=== PATIENT | male | born 2005 | race Caucasian/White ===

== ENCOUNTER 2025-05-26 16:35 | Outpatient (CLI) | payer OTHER, SELFPAY | END 2025-05-26 16:36 | disposition home or self-care (01) | LOC: AMB 05-27 13:59 | PROVIDERS: Visit Provider Family Medicine | DX: R41.82 Altered mental status, unspecified (principal); H53.8 Other visual disturbances; R20.2 Paresthesia of skin | CPT/HCPCS: A0425; A0427 ==

== ENCOUNTER 2025-06-17 00:45 | Outpatient (CLI) | payer OTHER, SELFPAY | END 2025-06-17 00:46 | disposition home or self-care (01) | LOC: AMB 06-19 10:04 | PROVIDERS: Visit Provider Family Medicine | DX: R06.09 Other forms of dyspnea (principal) | CPT/HCPCS: A0998 ==

== ENCOUNTER 2025-06-25 21:25 | Emergency (ER) | payer OTHER, SELFPAY ==
--- OUTSIDE RECORDS SUMMARY | 2025-05-26 17:14 | XMS_ITS | Encounter Summary ---
Author Organization [facility] Address [address] [place] [address] Care Team Providers Care Zigzag Appliquer Name Role Phone Elsewhere, Pcp Primary Care Provider Unavailabl e Reason for Visit * Reason Comments Dizziness Brought in by billnicola panchal after he felt dizzy and had decreased sensation in his extremities while driving home from work after jarring his neck while lifting a carpet at work today. Encounter Details Date Type Department Care Team (Late st Contact Info) Description 05/26/2025 5:14 PM CDT - 05/26/2025 6:29 PM CDT Emergency [facility] [address] [place] [phone] Joon Deng, DAHLIA, C.N.P., D.N.P. [address] [place] [address] Strain Neck Initial (Primary Dx); Presyncope; Paresthesia Discharge Disposition: Home or Self Care Social History Tobacco Use Types Packs/Day Years Used Date Smoking Tobacco: Never Smokeless Tobacco: Never Alcohol Use Standard Drinks/Week Comments Not Currently 0 (1 standard drink = 0.6 oz pur e alcohol) 1-2 times monthly Humiliation, Afraid, Rape, and Kick questionnair e Answer Date Recorded Within the last year, have y ou been afraid of your partner or ex-partner? No 08/14/2024 Within the last year, have y ou been humiliated or emotionally abused in other ways by your partner or ex-partner? No Within the last year, have y ou been kicked, hit, slapped, or otherwise physically hurt by your partner or ex-partner? No 08/14/2024 Within the last year, have y ou been raped or forced to have any kind of sexual activity by your partner or ex-partner? No 08/14/2024 Hunger Vital Sign Answer Date Recorded Within the past 12 months, y ou worried that your food would run out before you got the money to buy more. Sometimes true Within the past 12 months, t he food you bought just didn't last and you didn't have money to get more. Sometimes true PRAPARE - Transportation Answer Date Re corded In the past 12 months, has l ack of transportation kept you from medical appointments or from getting medications? Yes 05/09 In the past 12 months, has l ack of transportation kept you from meetings, work, or from getting things needed for daily living? Yes 05/27/2025 [facility] Utilities Answer Date Recorded In the past 12 months has [employer], gas, oil, or water [employer] threatened to shut off services in your home? No 05/27/2025 Depression Answer Date Recor ded PHQ-9 Total Score (max 27) 27 05/27 Housing Stability Answer Date Recorded What is your living situation today? [facility] 05/27/2025 Sex and Gender Information Value Date Recorded Sex Assigned at Male 04/14/2024 10:17 AM CDT Legal Sex Male 11:10 AM CDT Gender Identity Male 04/14/2024 10:17 AM CDT Sexual Orientation Straight 04/14/2024 10 :17 AM CDT documented as of this encounter Last Filed Vital Signs Vital Sign Reading Time Taken Comments Blood Pressure 115/69 05/26/2025 6:15 PM CDT Pulse 72 05/26/2025 6:15 PM CDT Temperature 36.9 C (98.4 F) 05/26/2025 5:06 PM CDT Respiratory Rate 18 05/26/2025 6:15 PM CDT Oxygen Saturation 97% 05/26/2025 6:15 PM CDT Inhaled Oxygen Concentration - - Weight 66 kg (145 lb 8.1 oz) 05/26/2025 5:38 PM CDT Height - - Body Mass Index 18.95 08/21/2024 10:00 AM ORACLE SPECIALIST documented in this encounter Discharge Instructions * Discharge Instructions* Joon Deng APRN, C.N.P., D.N.P. - 05/26/2025 5:57 PM CDT Take a wait and see approach, with your neck pain take ibuprofen 3 tablets every 6 hours with some food. If this pain continues or you develop any other symptoms return to family medicine for repeat examination and/or return to the emergency department. Etiology of you were symptoms are not quite clear on today's visit, however if this continues you will need follow-up. Thank you for utilizing [facility] for your care! * Attachments The following attachments cannot be sent through Care Everywhere. * Cervical Sprain [id number] (Dutch) documented in this encounter Medications at Time of Discharge escitalopram (Lexapro) 10 mg tablet Take 1 tablet daily. 90 tablet 3 06/20/2024 3:07 PM CDT 06/11/2024 05/28/2025 traZODone (DesyreL) 50 mg tablet Take 0.5-1 tablet (25-50 mg total) by mouth at night for insomnia. 30 tablet 1 08/21/2024 05/28/2025 documented as of this encounter ED Notes * Joon Deng APRN, C.N.P., D.N.P. - 05/26/2025 5:17 PM CDT Images from the original note were not included. CHIEF COMPLAINT/REASON FOR VISIT Dizziness (Brought in by ambulance after he felt dizzy and had decreased sensation in his extremities while driving home from work after jarring his neck while lifting a carpet at work today.) HISTORY OF PRESENT ILLNESS Patient presents to the emergency department with complaints of neck pain and thoracic back pain. Patient states he was working today, they were lifting a heavy carpet when his partner dropped his end of the carpet, the patient felt a jar in his neck but no other symptoms. After the patient got home, he had an episode where he felt like he was on drugs/hallucinogens and felt some confusion as well as numb fingers and numb toes, he then noticed he was having some cervical neck pain as well as some thoracic back pain. Patient states he routinely we will get thoracic back pain and he is not sureif this is part of the chronic problem or if this is a new problem. Patient's symptoms have since resolved and he has no numbness or tingling currently. History provided by: Patient, EMS personnel and medical records cow tester needed/used: no REVIEW OF SYSTEMS Constitutional: Negative for chills, diaphoresis, fatigue and fever. HENT: Negative for sinus pressure and sore throat. Respiratory: Negative for cough, chest tightness and shortness of breath. Cardiovascular: Negative for chest pain. Gastrointestinal: Negative for abdominal pain, constipation, diarrhea, nausea and vomiting. Genitourinary: Negative for dysuria, frequency and urgency. Musculoskeletal: Positive for back pain, neck pain and neck stiffness. Negative for arthralgias andmyalgias. Skin: Negative for rash. Neurological: Positive for syncope (Presyncopal). Negative for dizziness, weakness and headaches. Hematological: Negative for adenopathy. Does not bruise/bleed easily. All other systems reviewed and are negative. Allergies Reviewed in medical record Current Medications Reviewed in Medical Record. PAST HISTORY Medical Medical History[1] Problem List[2] Surgical Surgical History[3] Family Reviewed in Medical Record Social History Social History Tobacco Use Smoking status: Never Smokeless tobacco: Never Substance Use Topics Alcohol use: Not Currently Comment: 1-2 times monthly Social History Substance and Sexual Activity Drug Use Never OBJECTIVE Initial Vital Signs / Weights Initial Vitals [05/26/25 1706] Temperature 36.9 ??C Pulse Rate 79 Heart Rate 79 Resp Rate 16 Blood Pressure 128/78 SpO2 98 % Pain Score 0 - No pain Wt Readings from Last 3 Encounters: 05/26/25 66 kg 08/21/24 67.4 kg 08/14/24 70.2 kg PHYSICAL EXAMINATION Constitutional: Nursing note and vitals reviewed. No distress. HENT: Mouth/Throat: Oropharynx is clear and moist. Mucous membranes are moist. No tonsillar exudate. Eyes: Conjunctivae and EOM are normal. Pupils are equal, round, and reactive to light. Neck: Neck supple. Cardiovascular: Normal rate, regular rhythm, S1 normal, S2 normal and normal heart sounds. Pulses are strong and palpable. No murmur heard.Capillary refill: takes less than 3 seconds Pulmonary/Chest: Effort normal and breath sounds normal. There is normal air entry. No respiratory distress. Abdominal: Soft. Bowel sounds are normal. exhibits no distension. There is no abdominal tenderness.There is no rebound and no guarding. Musculoskeletal: General: Normal range of motion. Cervical back: Normal range of motion and neck supple. Lymphadenopathy: He has no cervical adenopathy. Neurological: Alert and oriented to person, place, and time. No cranial nerve deficit. NEUROLOGICAL: Mental status: Alert and oriented to person, place, and time. Follows simple and complex commands appropriately. Good fund of knowledge. Language normal including naming, comprehension, repetition, and fluency. CN: 2 - Pupils equal, round, and reactive to light and accommodation. Visual hathaway intact. 3,4,6 - Extraocular muscles intact without nystagmus. 5 - Sensations preserved. 7 - Symmetry preserved. 8 - Conversational hearing intact. 9,10 - Palate elevation symmetric. 11 - Sternocleidomastoid and trapezius 5/5 strength. 12 - Tongue midline. No dysarthria. Motor: Normal tone and bulk. 5/5 strength in left LUE, 5/5 strength in LLE, 5/5 strength in RUE, 5/5 strength in RLE. Drift - NO pronator drift LUE, LLE, RUE, or RLE Sensory: Intact to light touch. Coordination: Zynwby-cv-mddl and odrv-xj-ocgo intact bilaterally without dysmetria and not disproportionate to weakness. Skin: Skin is warm, dry and intact. Psychiatric: He has a normal mood and affect. DIAGNOSTICS Labs Labs Reviewed CBC WITH DIFFERENTIAL, B - Abnormal Result Value Hemoglobin 14.6 Hematocrit 41.4 Erythrocytes 4.92 MCV 84.1 RBC Distrib Width 12.0 Platelet Count 150 Leukocytes 6.0 Neutrophils 4.70 Lymphocytes 0.94 (*) Monocytes 0.30 Eosinophils <0.04 Basophils <0.04 COMPREHENSIVE METABOLIC PANEL, S/P Potassium, P 3.9 Sodium, P 141 Chloride, P 105 Bicarbonate, P 23 Anion Gap, P 13 BUN (Blood Urea Nitrogen), P 10 Creatinine 0.79 Estimated GFR (eGFR) >90 Calcium, Total, P 9.3 Glucose, P 103 Protein, Total, P 7.3 Albumin, P 4.9 Aspartate Aminotransferase (AST), P 20 Alkaline Phosphatase, P 40 Alanine Aminotransferase (ALT), P 17 Bilirubin, Total, P 1.0 GLUCOSE POCT, B Glucose, POCT, B 98 ECG ECG 12 Lead Result Date: 05/26/2025 Normal sinus rhythm with sinus arrhythmia Right axis deviation Incomplete right bundle branch block When compared with ECG of 14-Aug-2024 08:38, QRS duration has increased Reviewed by KAYA Perez Radiology CT Thoracic Spine without IV Contrast Final Result No acute fracture or listhesis seen in the thoracic or cervical spine. Mild gradual reversal of the normal cervical lordosis, which can be due to patient positioning, muscle spasm, or soft tissue injury. Thoracic spine Schmorl's nodes as described. CT Cervical Spine without IV Contrast Final Result No acute fracture or listhesis seen in the thoracic or cervical spine. Mild gradual reversal of the normal cervical lordosis, which can be due to patient positioning, muscle spasm, or soft tissue injury. Thoracic spine Schmorl's nodes as described. Procedures None See separate procedure note. ED COURSE ED Course as of 05/26/25 1833 e May 26, 2025 1708 Based on pre arrival information a red trauma was called. Once the patient arrived in the emergency department there was no trauma that produced his symptoms. 1710 I performed my initial evaluation of the patient. We discussed Emergency Department course including testing, treatment, and potential disposition based on findings. Arrives in C collar. Having no symptoms whatsoever at this time. Cranial nerves 2-12 intact, no drift, no focal neurological findings on exam. The trauma was down graded as there was no traumatic incident that produced his symptoms. 1736 Formal EKG read IMPRESSION: Normal sinus rhythm with sinus arrhythmia Right axis deviation Incomplete right bundle branch block When compared with ECG of 14-Aug-2024 08:38, QRS duration has increased Reviewed by KAYA Perez 1749 CMP is entirely unremarkable. 1750 IMPRESSION: CT cervical and thoracic spine. No acute fracture or listhesis seen in the thoracic or cervical spine. Mild gradual reversal of the normal cervical lordosis, which can be due to patient positioning, muscle spasm, or soft tissue injury. Thoracic spine Schmorl's nodes as described. 1752 Cervical collar was removed, patient flexed and he felt some tightness in the back of his neck, he was extended and rotated [id number] with no symptoms or radicular symptoms associated with numbness tingling. 1753 We will get orthostatics after the cervical collar was removed. 1811 Patient's orthostatics were negative. Patient remained symptom free. Will take a wait and see approach with him. He was advised to return to the emergency department for any worsening symptoms. Red flags were given. I discussed the plan for discharge with the patient, and patient/family is agreeable. I discussed with patient the utility, limitations, and findings of the exam/interventions/studies done during this visit as well as the list of differential diagnosis. Patient understands provisional nature of this diagnosis and need for follow up. We discussed the plan of care, including supportive cares. We also discussed symptoms to monitor and symptoms that should prompt them to return for re-evaluation including new or worsening symptoms. All questions and concerns addressed. Patient to be discharged byRN. Final Diagnoses: as of 05/26/25 1833 Strain Neck Initial Presyncope Paresthesia INTERVENTIONS Medications - No data to display MEDICAL DECISION MAKING Assessment and Plan Patient presents to the emergency department with some atypical symptoms neck pain, thoracic back pain, presyncopal symptoms with some mild confusion and head ramirez. The patient developed some numbness and tingling of his hands and feet. Patient did feel a twinge of neck pain when a carpet was dropped earlier today. On the drive home is when all these symptoms started. He presents by ambulance. Differential diagnosis includes but not limited to neck strain, sprain, fracture, ligamentous injury, metabolic derangement, hypoglycemia, or others. We will get a point of care glucose, CBC, CMP. We will get a CT scan of the cervical spine as well as thoracic spine. Peripheral IV will be placed in case patient developed symptoms. Patient arrived in his cervical collar. This is left in place until imaging is completed. Disposition pending workup. Workup in the emergency department was pretty unrevealing. CT scans of the cervical and thoracic spine were essentially unremarkable. He did have mild straightening of his cervical spine, however he had a cervical collar on at the time of imaging. Labs CBC, BNP were unremarkable. Orthostatics were negative. EKG was unremarkable and had no chest pain. I think with this patient we can take a wait and see approach to see how his symptoms present over the next couple of days. I instructed him to follow-up with primary care in a week, sooner if you were to get worse or return to the emergency department. Again neurologically there is no focal findings and this is reassuring.. DIFFERENTIAL DIAGNOSES As above. PROBLEMS ADDRESSED THIS VISIT As above. Care is significantly affected by the following Social Determinants of Health: none. I reviewed the following external records: primary care records, prior outpatient labs, prior outpatient radiology tests and inpatient records. Assessment & Plan The following tests were considered but ultimately not performed: none. Escalation of care, including admission/observation, considered: none. DIAGNOSIS Final diagnoses: [S16.1XXA] Strain Neck Initial [R55] Presyncope [R20.2] Paresthesia DISPOSITION Home or Self Care DISCHARGE/TRANSFER VITAL SIGNS Vitals: 05/26/25 1815 BP: 115/69 Pulse: 72 Resp: 18 Temp: SpO2: 97% ED DISCHARGE MEDS ED Prescriptions None FOLLOW UP Contact Information for Follow-ups Elsewhere, Pcp Specialty: Internal Medicine, Associate Professor Of Theatre, Pediatrics, Women's Health, Family Medicine Relationship: PCP - General Office Next Steps: Follow up in 1 week(s) Instructions: As needed Joon Deng, MARIVEL, LOCKER ATTENDANT, LOADMASTER-C, AGACNP-BC, ENP-C Emergency Medicine [1] Past Medical History: Diagnosis Date Depressive Disorder Disturbance Sleep Hallucination Self Mutilation [2] Patient Active Problem List Diagnosis Myocardial Infarction Type 2 (HCC) Lyme Disease Myocarditis (HCC) Myocarditis Acute (HCC) Spells Neurological (HCC) Lyme Disease Personal History [3] History reviewed. No pertinent surgical history. Joon Deng APRN, C.N.P., D.N.P. 05/26/25 1835 documented in this encounter Plan of Treatment Upcoming Encounters Date Type Department Care Team (Late st Contact Info) Description 07/14/2025 1:00 PM CDT Office Visit Department of Neurology in [place], [place] [address] [place] [address] Jadon Blevins M.D. [address] [place] [address] documented as of this encounter Procedures Procedure Name Priority Date/Time Associated Diagnosis Comments CT THORACIC SPINE WITHOUT IV CONTRAST RAD - Semiurgent (Fast; most ED patients; some inpatients) 05/26/2025 5:[address] CERVICAL SPINE WITHOUT IV CONTRAST RAD - Semiurgent (Fast; most ED patients; some inpatients) 05/26/2025 5:36 PM CDT ECG Routine 05/26/2025 5:19 PM CDT CBC WITH DIFFERENTIAL, B STAT 05/26/2025 5:19 PM CDT COMPREHENSIVE METABOLIC PANEL, S/P STAT 05/26/2025 5:19 PM CDT GLUCOSE POCT, B Routine 05/26/2025 5:17 PM CDT documented in this encounter Results * CT Thoracic Spine without IV Contrast (05/26/2025 5:39 PM CDT) Anatomical Region Laterality Modality Thoracic Spine, Neuroradiolo gy RST LOS, Neuroradiology ARZ LOS, Neuroradiology FLA LOS N/A Computed Tomography Impressions 05/26/2025 5:46 PM CDT No acute fracture or listhesis seen in the thoracic or cervical spine. Mild gradual reversal of the normal cervical lordosis, which can be due to patient positioning, muscle spasm, or soft tissue injury. Thoracic spine Schmorl's nodes as described. Narrative 05/26/2025 5:46 PM CDT EXAM: CT CERVICAL SPINE WITHOUT IV CONTRAST, CT THORACIC SPINE WITHOUT IV CONTRAST COMPARISON: 06/01/2024 FINDINGS: No acute fracture or listhesis seen in the thoracic or cervical spine by CT. There is mild gradual reversal of the normal cervical lordosis. There are multiple mid to lower thoracic vertebral body Schmorl's nodes. Procedure Note Joni Cunningham M.D. - 05/26/2025 EXAM: CT CERVICAL SPINE WITHOUT IV CONTRAST, CT THORACIC SPINE WITHOUT IVCONTRAST COMPARISON: 06/01/2024 FINDINGS: No acute fracture or listhesis seen in the thoracic or cervical spine byCT. There is mild gradual reversal of the normal cervical lordosis. There are multiple mid to lower thoracic vertebral body Schmorl's nodes. IMPRESSION: No acute fracture or listhesis seen in the thoracic or cervical spine. Mild gradual reversal of the normal cervical lordosis, which can be due topatient positioning, muscle spasm, or soft tissue injury. Thoracic spine Schmorl's nodes as described. us Joon Deng APRN, C.N.P., D.N.P. IMG CT PROCE DURES Final Result * CT Cervical Spine without IV Contrast (05/26/2025 5:36 PM CDT) Anatomical Region Laterality Modality Cervical Spine, Neuroradiolo gy RST LOS, Neuroradiology ARZ LOS, Neuroradiology FLA LOS N/A Computed Tomography 05/26/2025 5:29 PM CDT Impressions 05/26/2025 5:46 PM CDT No acute fracture or listhesis seen in the thoracic or cervical spine. Mild gradual reversal of the normal cervical lordosis, which can be due to patient positioning, muscle spasm, or soft tissue injury. Thoracic spine Schmorl's nodes as described. Narrative 05/26/2025 5:46 PM CDT EXAM: CT CERVICAL SPINE WITHOUT IV CONTRAST, CT THORACIC SPINE WITHOUT IV CONTRAST COMPARISON: 06/01/2024 FINDINGS: No acute fracture or listhesis seen in the thoracic or cervical spine by CT. There is mild gradual reversal of the normal cervical lordosis. There are multiple mid to lower thoracic vertebral body Schmorl's nodes. Procedure Note Joni Cunningham M.D. - 05/26/2025 EXAM: CT CERVICAL SPINE WITHOUT IV CONTRAST, CT THORACIC SPINE WITHOUT IVCONTRAST COMPARISON: 06/01/2024 FINDINGS: No acute fracture or listhesis seen in the thoracic or cervical spine byCT. There is mild gradual reversal of the normal cervical lordosis. There are multiple mid to lower thoracic vertebral body Schmorl's nodes. IMPRESSION: No acute fracture or listhesis seen in the thoracic or cervical spine. Mild gradual reversal of the normal cervical lordosis, which can be due topatient positioning, muscle spasm, or soft tissue injury. Thoracic spine Schmorl's nodes as described. us Joon Deng APRN, C.N.P., D.N.P. IMG CT PROCE DURES Final Result * ECG 12 Lead (05/26/2025 5:19 PM CDT) Ventricular Rate ECG/Min 77 BPM MUSE RI Interval 164 ms MUSE QRSD Interval 90 ms MUSE QT Interval 368 ms MUSE QTC Interval 416 ms MUSE P [place] 81 degrees MUSE R [place] 92 degrees MUSE T Wave [place] 75 degrees MUSE 05/26/2025 5:19 PM CDT 05/27/2025 7:52 AM CDT Impressions MUSE - 05/26/2025 5:23 PM CDT Normal sinus rhythm with sinus arrhythmia Right axis deviation Incomplete right bundle branch block Nonspecific T wave abnormality When compared with ECG of 14-Aug-2024 08:38, QRS duration has increased Reviewed by KAYA Perez Narrative Procedure Note Xiang Jenkins M.D. - 05/27/2025 IMPRESSION: Normal sinus rhythm with sinus arrhythmia Right axis deviation Incomplete right bundle branch block Nonspecific T wave abnormality When compared with ECG of 14-Aug-2024 08:38, QRS duration has increased Reviewed by KAYA Perez Joon Deng APRN, C.N.P., D.N.P. ECG ORDERABL ES Edited Result - Final MUSE NA * Comprehensive Metabolic Panel (05/26/2025 5:19 PM CDT) Pathologist [facility] Potassium, P 3.9 3.6 - 5.2 mmol/L 05/26/2025 5:44 PM CDT CNFL Sodium, P 141 135 - 145 mmol/L 05/26/2025 5:44 PM CDT CNFL Chloride, P 105 98 - 107 mmol/L 05/26/2025 5:44 PM CDT CNFL Bicarbonate, P 23 22 - 29 mmol/L 05/26/2025 5:43 PM CDT CNFL Anion Gap, P 13 7 - 15 05/26/2025 5:44 PM CDT CNFL BUN (Blood Urea Nitrogen), P 10 8 - 24 mg/dL 05/26/2025 5:43 PM CDT CNFL Creatinine 0.79 0.74 - 1.35 mg/dL 05/26/2025 5:43 PM CDT CNFL Estimated GFR (eGFR) >90 >=60 mL/min/BS A 05/26/2025 5:43 PM CDT CNFL Comment: Estimated GFR calculated using the 2020 CKD_EPI creatinine equation. Calcium, Total, P 9.3 8.6 - 10.0 mg/dL 05/26/2025 5:43 PM CDT CNFL Glucose, P 103 70 - 140 mg/dL 05/26/2025 5:43 PM CDT CNFL Protein, Total, P 7.3 6.3 - 7.9 g/dL 05/26/2025 5:43 PM CDT CNFL Albumin, P 4.9 3.5 - 5.0 g/dL 05/26/2025 5:43 PM CDT CNFL Aspartate Aminotransferase (AST), P 20 8 - 48 U/L 05/26/2025 5:43 PM CDT CNFL Alkaline Phosphatase, P 40 40 - 129 U/L 05/26/2025 5:43 PM CDT CNFL Alanine Aminotransferase (ALT), P 17 7 - 55 U/L 05/26/2025 5:43 PM CDT CNFL Bilirubin, Total, P 1.0 0.0 - 1.2 mg/dL 05/26/2025 5:43 PM CDT CNFL Blood (Blood, Venous) 05/26/2025 5:19 PM CDT 05/26/2025 5:20 PM CDT us Lisa Knight APRNNKemal., Gayle.N.P. LAB BLOOD AD D-ON Final Result [facility] [address] [place] [id number], [facility] CNFL [facility] [place] [address] * (ABNORMAL) CBC with Differential, Blood (05/26/2025 5:19 PM CDT) Hemoglobin 14.6 13.2 - 16.6 g/dL 05/26/2025 5:23 PM CDT CNFL Hematocrit 41.4 38.3 - 48.6 % 05/26/2025 5:23 PM CDT CNFL Erythrocytes 4.92 4.35 - 5.65 x10(12)/L 05/26/2025 5:23 PM CDT CNFL MCV 84.1 78.2 - 97.9 fL 05/26/2025 5:23 PM CDT CNFL RBC Distrib Width 12.0 11.8 - 14.5 % 05/26/2025 5:23 PM CDT CNFL Platelet Count 150 135 - 317 x10(9)/L 05/26/2025 5:23 PM CDT CNFL Leukocytes 6.0 3.4 - 9.6 x10(9)/L 05/26/2025 5:23 PM CDT CNFL Neutrophils 4.70 1.56 - 6.45 x10(9)/L 05/26/2025 5:23 PM CDT CNFL Lymphocytes 0.94(L) 0.95 - 3.07 x10(9)/L 05/26/2025 5:23 PM CDT CNFL Monocytes 0.30 0.26 - 0.81 x10(9)/L 05/26/2025 5:23 PM CDT CNFL Eosinophils <0.04 0.03 - 0.48 x10(9)/L 05/26/2025 5:23 PM CDT CNFL Basophils <0.04 0.01 - 0.08 x10(9)/L 05/26/2025 5:23 PM CDT CNFL Blood (Blood, Venous) 05/26/2025 5:19 PM CDT 05/26/2025 5:20 PM CDT Joon Deng APRN, C.N.P., D.N.P. LAB BLOOD AD D-ON Final Result Performing Organization Address [facility] Co de Phone Number [facility] [address] [place] [phone], [facility] in [place] [phone] * Glucose, POCT (05/26/2025 5:17 PM CDT) [facility] Glucose, POCT, B 98 70 - 140 mg/dL 05/26/2025 5:17 PM CDT [facility] Blood 05/26/2025 5:17 PM CDT 05/26/2025 5:24 PM CDT us Generic [facility] POCT ORDERABLES-MANUAL Final Result Performing Organization Address [facility] de Phone Number [facility] [address] [place] [phone], [facility] in [address] [address] documented in this encounter Visit Diagnoses Diagnosis Strain Neck Initial- Primary Presyncope Paresthesia documented in this encounter Additional Health Concerns Assessment Noted Time PHQ-9 Depression Total Score: 024 9:56 AM ORACLE SPECIALIST documented as of this encounter Care Teams Zigzag Appliquer Relationship Specialty Start Date End Date Elsewhere, Pcp PCP - General Internal Medicine 05/26/25 05/26/25 documented as of this encounter
--- OUTSIDE RECORDS SUMMARY | 2025-05-26 17:14 | XMS_ITS | Encounter Summary ---
Author Organization [facility] Address [address] [place] [address] Care Team Providers Care Law Clerk Name Role Phone Elsewhere, Pcp Primary Care [...] CDT - 05/26/2025 6:29 PM CDT Emergency [facility] [address] [place] [phone] Joon Deng, DAHLIA, C.N.P., D.N.P. [address] [place] [address] Strain Neck Initial (Primary Dx); Presyncope; [...] things needed for daily living? Yes 05/27/2025 [facility] Utilities Answer Date Recorded In the past 12 months has [employer], gas, oil, or water [employer] threatened to shut off services in your home? No 05/27/2025 Depression Answer Date Recor ded PHQ-9 Total Score (max 27) 27 05/27 Housing Stability Answer Date Recorded What is your living situation today? I have a [employer] place to live 05/27/2025 Sex and Gender [...] Body Mass Index 18.95 08/21/2024 10:00 AM GAS PUMPING STATION SUPERVISOR documented in this encounter Discharge Instructions * [...] will need follow-up. Thank you for utilizing [facility] for your care! * Attachments The following attachments cannot be sent through Care Everywhere. * Cervical Sprain Ahrq-ek-Aqxt (Croatian) documented in this encounter Medications at Time [...] by: Patient, EMS personnel and medical records language interpreter needed/used: no REVIEW OF SYSTEMS Constitutional: Negative [...] RLE Sensory: Intact to light touch. Coordination: Nroees-qt-mmoh and jlfn-gu-hmpq intact bilaterally without dysmetria and not disproportionate [...] his neck, he was extended and rotated rzvt-zu-[id number] with no symptoms or radicular symptoms associated [...] for Follow-ups Elsewhere, Pcp Specialty: Internal Medicine, Health Care Facility Administrator, Pediatrics, Women's Health, Family Medicine Relationship: PCP - General Office Next Steps: Follow up in 1 week(s) Instructions: As needed Joon Deng, MARIVEL, PATTERN FINISHER, WIRE STRIPPER-C, AGACNP-BC, ENP-C Emergency Medicine [1] Past Medical [...] CDT Office Visit Department of Neurology in [place], [place] [address] [place] [address] Jadon Blevins M.D. [address] [place] [address] documented as of this encounter Procedures Procedure [...] CDT) Ventricular Rate ECG/Min 77 BPM MUSE IL Interval 164 ms MUSE QRSD Interval 90 ms MUSE QT Interval 368 ms MUSE QTC Interval 416 ms MUSE P [place] 81 degrees MUSE R [place] 92 degrees MUSE T Wave [place] 75 degrees MUSE 05/26/2025 5:19 PM CDT [...] Metabolic Panel (05/26/2025 5:19 PM CDT) Pathologist [facility] Potassium, P 3.9 3.6 - 5.2 mmol/L [...] Gayle.N.P. LAB BLOOD AD D-ON Final Result [facility] [address] [place] [phone], [facility] CNFL [facility] [place] [address] * (ABNORMAL) CBC with Differential, Blood (05/26/2025 [...] AD D-ON Final Result Performing Organization Address [facility] Co de Phone Number [facility] [address] [place] [phone], [facility] in [place] [phone] * Glucose, POCT (05/26/2025 5:17 PM CDT) [facility] Glucose, POCT, B 98 70 - 140 mg/dL 05/26/2025 5:17 PM CDT [facility] Blood 05/26/2025 5:17 PM CDT 05/26/2025 5:24 PM CDT us Generic [facility] POCT ORDERABLES-MANUAL Final Result Performing Organization Address [facility] de Phone Number [facility] [address] [place] [phone], [facility] in [address] [address] documented in this encounter Visit Diagnoses Diagnosis Strain Neck Initial- Primary Presyncope Paresthesia documented in this encounter Additional Health Concerns Assessment Noted Time PHQ-9 Depression Total Score: 024 9:56 AM GAS PUMPING STATION SUPERVISOR documented as of this encounter Care Teams Law Clerk Relationship Specialty Start Date End Date Elsewhere, Pcp PCP - General Internal Medicine 05/26/25 05/26/25 documented as of this encounter
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
--- OUTSIDE RECORDS SUMMARY | 2025-05-28 10:00 | XMS_ITS | Encounter Summary ---
Author Organization [facility] Address [address] [place] [address] Care Team Providers Care Cask Maker Name Role Phone Riri Wright APRN, C.N.P. Primary Care Provide r Reason for Referral * Behavioral Health (Routine) - Authorized Specialty Diagnoses / Procedures Referred By Louie song Referred To Contact Psychiatry / Psychiatry and Psychology Diagnoses Persistent Depressive Disorder Autistic Feature Personal History Depression Major Recurrent Severe (HCC) Riri Wright APRN, C.N.P. [address] [place] [address] Phone: tel: fax: [facility] Region Referral ID Status Reason Start Date Expiration Date Visits Requested Visits Authorized [id number] Authorized Specialty Services Required 05/28/2025 11/27/2026 1 1 * Outpatient (Routine) - Authorized Specialty Diagnoses / Procedures Referred By Louie song Referred To Contact Psychiatry and Psychology Diagnoses Persistent Depressive Disorder Autistic Feature Personal History Depression Major Recurrent Severe (HCC) Riri Wright APRN, C.N.P. [address] [place] [address] Phone: tel: fax: Drake Whitley APRN, C.N.P., D.N.P. [address] [place] [address] Phone: tel: fax: Referral ID Status Reason Start Date Expiration Date V isits Requested Visits Authorized [id number] Authorized 05/28/2025 11/27/2026 1 1 Reason for Visit * Reason Comments Depression Suicidal thoughts Encounter Details Date Type Department Care Team (Late st Contact Info) Description 05/28/2025 10:00 AM CDT Telemedicine Department of Family Medicine, [facility] [place], in [address] [phone] Izabella Wagoner M.D. [address] [place] [phone] Persistent Depressive Disorder (Primary Dx); Autistic Feature [...] things needed for daily living? Yes 05/27/2025 [facility] Utilities Answer Date Recorded In the past 12 months has th [employer] electric, gas, oil, or water company threatened to shut off services in your home? No 05/27/2025 Depression Answer Date Recor ded PHQ-9 Total Score (max 27) 27 05/27 Housing Stability Answer Date Recorded What is your living situation today? I have a [facility] place to live 05/27/2025 Sex and [...] audio/video technology by Izabella Wagoner M.D. in [facility] to the patient in home. Patient is informed that their insurance will be billed. Patient is unaccompanied. Mom is in the home. Patient is at home . 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 [address] [place] [address] Scheduled Referrals Name Type Priority Associated Diagnoses [...] documented as of this encounter Care Teams Cask Maker Relationship Specialty Start Date End Date Riri Wright APRN, C.N.P. [address] [place] [address] PCP - General Family Medicine 05/27/25 documented as of this encounter
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
--- OUTSIDE RECORDS SUMMARY | 2025-06-01 11:40 | XMS_ITS | Encounter Summary ---
Author Organization [facility] Address [address] [place] [address] Care Team Providers Care Side Trimmer Name Role Phone Riri Wright APRN, C.N.P. Primary Care Provide r Reason for Referral * Outpatient (Routine) - Authorized Specialty Diagnoses / Procedures Referred By Louie song Referred To Contact Family Medicine Arron Restrepo M.D., M.P.H. [address] [phone] Phone: tel: fax: [facility] Referral ID Status Reason Start Date Expiration Date V isits Requested Visits Authorized [id number] Authorized 06/01/2025 12/01/2026 1 1 * Behavioral Health (Routine) - Authorized Specialty Diagnoses / Procedures Referred By Louie song Referred To Contact Psychiatry / Psychiatry and Psychology Diagnoses Persistent Depressive Disorder Autistic Feature Personal History Visual Hallucinations Insomnia Suicide Ideation Arron Restrepo M.D., M.P.H. [address] [phone] Phone: tel: fax: [facility] Referral ID Status Reason Start Date Expiration Date Visits Requested Visits Authorized [id number] Authorized Specialty Services Required 06/01/2025 12/01/2026 1 1 * Sleep Medicine (Routine) - Closed Specialty Diagnoses / Procedures Referred By oLuie song Referred To Contact Diagnoses Snoring Procedures Home sleep apnea test (HSAT) Arron Restrepo M.D., M.P.H. [address] [place] [phone] Phone: tel: fax: [facility] Referral ID Status Reason Start Date Expiration Date Visits Re quested Visits Authorized [id number] Closed 06/01/2025 09/01/2026 1 1 Reason for [...] Expiration Date Visits Re quested Visits Authorized [id number] Closed 05/27/2025 08/27/2026 1 1 Encounter Details Date Type Department Care Team (Late st Contact Info) Description 06/01/2025 11:40 AM CDT Office Visit Department of Family Medicine, [facility], in [address] [phone] Arron Restrepo M.D., M.P.H. [address] [place] [address] [phone] Persistent Depressive Disorder (Primary Dx); Autistic Feature [...] things needed for daily living? Yes 05/27/2025 [facility] Utilities Answer Date Recorded In the past 12 months has e [employer], gas, oil, or water company threatened to [...] CDT Office Visit Department of Neurology in [place], [place] [address] [place] [phone] Jadon Blevins M.D. [address] [place] [address] Scheduled Referrals Name Type Priority Associated Diagnoses [...] documented as of this encounter Care Teams Side Trimmer Relationship Specialty Start Date End Date Riri Wright APRN, C.N.P. [address] [place] [phone] PCP - General Family Medicine 05/27/25 documented as of this encounter
--- OUTSIDE RECORDS SUMMARY | 2025-06-10 07:17 | XMS_ITS | Encounter Summary ---
Author Organization [facility] Address [address] [place] [address] Care Team Providers Care Hot Head Machine Operator Name Role Phone Riri Wright APRN C.N.PNiurka Primary Care Provide r Reason for Referral * Sleep Medicine (Routine) - Closed Specialty Diagnoses / Procedures Referred By Louie t Referred To Contact Diagnoses Snoring Procedures Home sleep apnea test (HSAT) Arron Restrepo M.D., M.P.H. [address] [place] [phone] Phone: tel: fax: [facility] Region Referral ID Status Reason Start Date Expiration Date Visits Re quested Visits Authorized [id number] Closed 06/01/2025 09/01/2026 1 1 Reason for Visit * Sleep Medicine (Routine) - Closed Specialty Diagnoses / Procedures Referred By Contvinny song Referred To Contact Diagnoses Snoring Procedures Home sleep apnea test (HSAT) Arron Retsrepo M.D., M.P.H. [address] [place] [phone] Phone: tel: fax: [facility] Region Referral ID Status Reason Start Date Expiration Date Visits Re quested Visits Authorized [id number] Closed 06/01/2025 09/01/2026 1 1 Encounter Details Date Type Department Care Team (Latest Contact Info) Description 06/10/2025 7:17 AM CDT - 06/10/2025 11:59 PM CDT Hospital Encounter Department of Pulmonary Medicine in [place], [place] [address] [place] [address] Arron Restrepo M.D., M.P.H. [address] [place] [phone] Snoring Discharge Disposition: Home or Self Care Social [...] things needed for daily living? Yes 05/27/2025 [facility] Utilities Answer Date Recorded In the past 12 months has th e electric, gas, oil, or water company threatened to shut off services in your home? No 05/27/2025 Depression Answer Date Recor ded PHQ-9 Total Score (max 27) 27 05/30 Housing Stability Answer Date Recorded What is your living situation today? I have a [facility] place to live 05/27/2025 Sex and Gender Information Value Date Recorded Sex Assigned at Male 04/14/2024 10:17 AM CDT Legal Sex Male 11:10 AM CDT Gender Identity Male 04/14/2024 10:17 AM CDT Sexual Orientation Straight 04/14/2024 10 :17 AM CDT documented as of this encounter Medications at Time of Discharge mirtazapine (Remeron) 7.5 mg tabletIndications :Persistent Depressive Disorder,Depressi on Major Recurrent Severe (HCC) Take 1 tablet (7.5 mg total) by mouth at bedtime. 90 tablet 05/28/2025 documented as of this encounter Plan of Treatment Upcoming Encounters Date Type Department Care Team (Late st Contact Info) Description 07/14/2025 1:00 PM CDT Office Visit Department of Neurology in [place], [place] [address] [place] [phone] Jadon Blevins M.D. [address] [place] [phone] documented as of this encounter Procedures Procedure Name Priority Date/Time Associated Diagnosis Comments HOME SLEEP APNEA TEST (HSAT) Routine 06/10/2025 10:48 AM CDT Snoring documented in this encounter Results * Home sleep apnea [...] sleep clinic consult. Clinical correlation is advised. us Arron Restrepo M.D., M.P.H. [facility] Final Result ONBASE NA documented in this encounter Visit Diagnoses Diagnosis Snoring documented in this encounter Additional Health Concerns Assessment Noted Time PHQ-9 Depression Total Score: 27 025 2:58 PM CDT documented as of this encounter Care Teams Hot Head Machine Operator Relationship Specialty Start Date End Date Riri Wright APRN, C.N.P. [address] [place] [phone] PCP - General Family Medicine 05/27/25 documented as of this encounter
--- OUTSIDE RECORDS SUMMARY | 2025-06-10 07:17 | XMS_ITS | Encounter Summary ---
Author Organization [facility] Address [address] [place] [address] Care Team Providers Care Warp Worker Name Role Phone Riri Wright APRN C.N.PNiurka Primary Care Provide r Reason for Referral * Sleep Medicine (Routine) - Closed Specialty Diagnoses / Procedures Referred By Louie t Referred To Contact Diagnoses Snoring Procedures Home sleep apnea test (HSAT) Arron Restrepo M.D., M.P.H. [address] [place] [phone] Phone: tel: fax: [facility] Region Referral ID Status Reason Start Date Expiration Date Visits Re quested Visits Authorized [id number] Closed 06/01/2025 09/01/2026 1 1 Reason for Visit * Sleep Medicine (Routine) - Closed Specialty Diagnoses / Procedures Referred By Contvinny song Referred To Contact Diagnoses Snoring Procedures Home sleep apnea test (HSAT) Arron Restrepo M.D., M.P.H. [address] [place] [phone] Phone: tel: fax: [facility] Region Referral ID Status Reason Start Date Expiration Date Visits Re quested Visits Authorized [id number] Closed 06/01/2025 09/01/2026 1 1 Encounter Details Date Type Department Care Team (Latest Contact Info) Description 06/10/2025 7:17 AM CDT - 06/10/2025 11:59 PM CDT Hospital Encounter Department of Pulmonary Medicine in [place], [place] [address] [place] [phone] Arron Restrepo M.D., M.P.H. [address] [place] [phone] Snoring Discharge Disposition: Home or Self Care [...] things needed for daily living? Yes 05/27/2025 [facility] Utilities Answer Date Recorded In the past 12 months has th e electric, gas, oil, or water company threatened to shut off services in your home? No 05/27/2025 Depression Answer Date Recor ded PHQ-9 Total Score (max 27) 27 05/30 Housing Stability Answer Date Recorded What is your living situation today? I have a [facility] place to live 05/27/2025 Sex and Gender [...] CDT Office Visit Department of Neurology in [place], [place] [address] [place] [address] Jadon Blevins M.D. [address] [place] [phone] documented as of this encounter Procedures Procedure [...] documented as of this encounter Care Teams Warp Worker Relationship Specialty Start Date End Date Riri Wright APRN, C.N.P. [address] [place] [phone] PCP - General Family Medicine 05/27/25 documented as of this encounter
--- OUTSIDE RECORDS SUMMARY | 2025-06-25 21:28 | XMS_ITS | Encounter Summary ---
Author Organization [facility] Address [address] [place] [address] Care Team Providers Care Electrical Electronics Engineer Name Role Phone Riri Wright APRN, C.N.P. Primary Care Provide r Reason for Visit * Reason Onset Date Comments Positive PHQ-9 05/28/2025 Encounter Details Date Type Department Care Team (Latest Contact Info) Description 05/28/2025 Clinical Communication Department of Family Medicine, [facility], in [address] [phone] Rrii Wright APRN, C.N.P. [address] [place] [phone] Positive PHQ-9 Social History Tobacco Use Types Packs/Day Years [...] things needed for daily living? Yes 05/27/2025 [facility] Utilities Answer Date Recorded In the past [address] [facility], gas, oil, or water [employer] threatened to shut off services in your home? No 05/27/2025 Depression Answer Date Recor ded PHQ-9 Total Score (max 27) 27 05/27 Housing Stability Answer Date Recorded What is your living situation today? I have a [facility] to live 05/27/2025 Sex and Gender Information Value Date Recorded Sex Assigned at Male 04/14/2024 10:17 AM CDT Legal Sex Male 11:10 AM CDT Gender Identity Male 04/14/2024 10:17 AM CDT Sexual Orientation Straight 04/14/2024 10 :17 AM CDT documented as of this encounter Miscellaneous Notes * Telephone Encounter - Aida Gaytan, RNiurkaN. - 05/28/2025 9:20 AM CDT SUBJECTIVE CHIEF COMPLAINT / REASON FOR CALL No chief complaint on file. Information Discussed Called patient d/t positive PHQ-9 score. Pt states he has thought of a couple ways he could commit suicide but nothing concrete. He was recently in ER for work related injury. Pt reports he stoppedusing Lexapro d/t not helping much and made him feel dull. He would also like to discuss a referral for sleep study and he feels his fatigue is not helping his mood. PLAN Disposition/Recommendation: Pt scheduled for On The Fly visit with Dr. Butts today. Pt was given crisis info for suicide assistance line. Portal message also sent. Information/Education: patient/caller able to teach back Caller agreeable to plan of care: yes The following references were used: nursing clinical judgement documented in this encounter Plan of Treatment Upcoming Encounters Date Type Department Care Team (Late st Contact Info) Description 07/14/2025 1:00 PM CDT Office Visit Department of Neurology in [place], [place] [address] [place] [address] Jadon Blevins M.D. [address] [place] [address] documented as of this encounter Visit Diagnoses Not on filedocumented in this encounter Additional Health Concerns Assessment Noted Time PHQ-9 Depression Total Score: 27 025 4:25 PM CDT documented as of this encounter Care Teams Electrical Electronics Engineer Relationship Specialty Start Date End Date Riri Wright APRN, C.N.P. [address] [place] [phone] PCP - General Family Medicine 05/27/25 documented as of this encounter
--- OUTSIDE RECORDS SUMMARY | 2025-06-25 21:28 | XMS_ITS | Encounter Summary ---
Author Organization [facility] Address [address] [place] [address] Care Team Providers Care Permastone Applicator Name Role Phone Riri Wright APRN, C.N.P. Primary Care Provide r Encounter Details Date Type Department Care Team (Late st Contact Info) Description 06/18/2025 Results Follow-Up Department of Family Medicine, [facility], in [address] [phone] Arron Restrepo M.D., M.P.H. [address] [place] [phone] Home sleep apnea test (HSAT) Social History Tobacco Use Types Packs/Day Years [...] things needed for daily living? Yes 05/27/2025 [facility] Utilities Answer Date Recorded In the past 12 months has e [employer], gas, oil, or water company threatened to shut off services in your home? No 05/27/2025 Depression Answer Date Recor ded PHQ-9 Total Score (max 27) 27 05/30 Housing Stability Answer Date Recorded What is your living situation today? I have a [facility] place to live 05/27/2025 Sex and Gender Information Value Date Recorded Sex Assigned at Male 04/14/2024 10:17 AM CDT Legal Sex Male 11:10 AM CDT Gender Identity Male 04/14/2024 10:17 AM CDT Sexual Orientation Straight 04/14/2024 10 :17 AM CDT documented as of this encounter Plan of Treatment Upcoming Encounters Date Type Department Care Team (Late st Contact Info) Description 07/14/2025 1:00 PM CDT Office Visit Department of Neurology in [place], [place] [address] [place] [address] Jadon Blevins M.D. [address] [place] [address] documented as of this encounter Visit Diagnoses Not on filedocumented in this encounter Additional Health Concerns Assessment Noted Time PHQ-9 Depression Total Score: 27 025 2:58 PM CDT documented as of this encounter Care Teams Permastone Applicator Relationship Specialty Start Date End Date Riri Wright APRN, C.N.P. [address] [place] [phone] PCP - General Family Medicine 05/27/25 documented as of this encounter
--- OUTSIDE RECORDS SUMMARY | 2025-06-25 21:28 | XMS_ITS | Encounter Summary ---
Author Organization [facility] Address [address] [place] [address] Care Team Providers Care Network Administrator Name Role Phone Riri Wright APRN, C.N.P. Primary Care Provide r Reason for Visit * Reason Onset Date Comments RST Psych Referral 06/03/2025 Encounter Details Date Type Department Care Team (Latest Contact Info) Description 06/03/2025 Clinical Communication Department of Family Medicine, [facility], in [address] [phone] Riri Wright APRN, C.N.P. [address] [place] [phone] RST Psych Referral Social History Tobacco Use Types Packs/Day Years [...] things needed for daily living? Yes 05/27/2025 [facility] Utilities Answer Date Recorded In the past 12 months has [facility] [employer], gas, oil, or water [employer] threatened to shut off services in your home? No 05/27/2025 Depression Answer Date Recor ded PHQ-9 Total Score (max 27) 27 05/30 Housing Stability Answer Date Recorded What is your living situation today? I have a [facility] place to live 05/27/2025 Sex and Gender [...] CDT Office Visit Department of Neurology in [place], [place] [address] [place] [address] Jadon Blevins M.D. [address] [place] [address] documented as of this encounter Visit Diagnoses Not on filedocumented in this encounter Additional Health Concerns Assessment Noted Time PHQ-9 Depression Total Score: 27 025 2:58 PM CDT documented as of this encounter Care Teams Network Administrator Relationship Specialty Start Date End Date Riri Wright APRN, C.N.P. [address] [place] [phone] PCP - General Family Medicine 05/27/25 documented as of this encounter
--- OUTSIDE RECORDS SUMMARY | 2025-06-25 21:28 | XMS_ITS | Clinical Summary ---
Author Organization [facility] Address [address] [place] [address] Care Team Providers Care Weatherization Administrator Name Role Phone Riri Wright APRN, C.N.P. Primary Care Provide r Source Comments Patient records contain information from all sites at [facility]. For routine questions regarding patient records, call [phone] during business hours, M-F 8:00 AM - 5:00 PM Central Time. Record requests for emergency care only can be directed to [phone] at any time.[facility] Allergies No known active allergies Medications * This document contains information received from the source organization and may not represent a complete record from that organization. mirtazapine (Remeron) 7.5 mg tabletIndicati ons:Persistent Depressive Disorder,Depre ssion Major Recurrent Severe (HCC) Take 1 tablet (7.5 mg total) by mouth at bedtime. 90 tablet 5 Active Additional Information Patient taking differently:7.5 mg oral Daily at bedtime,Has not started this medication., Reported on 06/01/2025 escitalopram (Lexapro) 10 mg tablet Take 1 tablet daily. 90 tablet 3 06/20/2024 3:07 PM CDT 4 05/28/20 25 Discontin ued(Side effects) traZODone (DesyreL) 50 mg tablet Take 0.5-1 tablet (25-50 mg total) by mouth at night for insomnia. 30 tablet 1 4 05/28/20 25 Discontin ued(Alter leobardo therapy) Active Problems Problem Noted Date Diagnosed Date Autistic Feature Personal History 05/28/2025 Overview (05/28/2025): Psychiatry consult, [facility] on 08/21/2024 Assessment & Plan (05/28/2025 9:27 PM CDT): See psychiatry evaluation of 08/21/2024. Reviewed returning for further work on diagnosis of behavioral health issues. Orders: Return to provider in another specialty; Future Psychiatry and Psychology - General consult (clinic); Future Persistent Depressive Disorder 08/21/2024 Overview (05/28/2025): Psychiatry consult-[facility]-08/21/2024 Suggested mirtazapine Medications: Lexapro started 06/11/2024 by Riri Wright APRN, HOSPITALITY HOST.-DC Trazodone 50 mg p.o. q.day-DC 10/27/2024-started mirtazapine 7.5 mg p.o. q.day follow-up 06/01/2025 Assessment & Plan (05/28/2025 9:27 PM CDT): Diagnosis per psychiatry with recommendation of starting [...] and Psychology - General consult (clinic); Future Spells Neurological 08/14/2024 Lyme Disease Personal History 08/14/2024 Myocardial Infarction Type 2 04/04/2024 Lyme Disease 04/04/2024 Myocarditis 04/04/2024 Myocarditis Acute 04/04/2024 Encounters * This document contains information received from the source organization and may not represent a complete record from that organization. Date Type Department Care Team Description 06/18/2025 Results Follow-Up Department of [facility] Medicine, [facility], [address] [phone] Arron Restrepo M.D., M.P.H. Home sleep apnea test (HSAT) 06/10/2025 7:17 AM CDT - 06/10/2025 11:59 PM CDT Hospital Encounter Department of Pulmonary Medicine [place] [address] [place] [address] Arron Restrepo M.D., M.P.H. Snoring Discharge Disposition: Home or Self Care 06/03/2025 Clinical Communication Department of Family Medicine, [facility], [address] [phone] Riri Wright APRN C.N.P. RST Psych Referral 06/01/2025 11:40 AM CDT Office Visit Department of [facility], [facility], [address] [phone] Arron Restrepo M.D., M.P.H. Persistent Depressive Disorder (Primary Dx); Autistic Feature Personal History; Visual Hallucinations; Insomnia; Snoring; Suicide Ideation Discharge Disposition: Home or Self Care 05/28/2025 10:00 AM CDT Telemedicine Department of [facility], [facility], [address] [phone] Izabella Wagoner M.D. Persistent Depressive Disorder (Primary Dx); Autistic Feature Personal History; Depression Major Recurrent Severe (HCC) Discharge Disposition: Home or Self Care 05/28/2025 Clinical Communication Department of Family Medicine, [facility], in [address] [phone] Riri Wright APRN, C.N.P. Positive PHQ-9 05/26/2025 5:14 PM CDT - 05/26/2025 6:29 PM CDT Emergency [facility] [address] [place] [phone] Joon Deng APRN, C.N.P., D.N.P. Strain Neck Initial (Primary Dx); Presyncope; Paresthesia Discharge Disposition: Home or Self Care from Last 3 Months Family History Medical History Relation Name Comments Psychiatric Brother 1 Kristopher Almanzar Suicide Attempts Brother 1 Kristopher Eubanksam ADD Brother 2 Nathan Ganoe Coronary artery disease Father Brock Ganoe Hyperlipidemia Father Brock Ganoe Hypertension Father Brock Ganoe Stroke Father Brock Ganoe Psychiatric Sister Juanita Almanzar Suicide Attempts Sister Juanita Almanzar Relation Name Status Comments Brother 1 Kristopher Eubanksam Alive Brother 2 Nathan Ganoe Alive Father Brock Ganoe Alive Sister Juanita Almanzar Alive Social History Tobacco Use Types Packs/Day Years [...] things needed for daily living? Yes 05/27/2025 [facility] Utilities Answer Date Recorded In the past 12 months has th e electric, gas, oil, or water company threatened to shut off services in your home? No 05/27/2025 Depression Answer Date Recor ded PHQ-9 Total Score (max 27) 27 05/30 Housing Stability Answer Date Recorded What is your living situation today? I have a [facility] place to live 05/27/2025 Sex and Gender Information Value Date Recorded Sex Assigned at Male 04/14/2024 10:17 AM CDT Legal Sex Male 11:10 AM CDT Gender Identity Male 04/14/2024 10:17 AM CDT Sexual Orientation Straight 04/14/2024 10 :17 AM CDT Last Filed Vital Signs Vital Sign Reading Time Taken Comments Blood Pressure 117/71 06/01/2025 11:19 AM CDT Pulse 62 06/01/2025 11:19 AM CDT Temperature 36.5 C (97.7 F) 06/01/2025 11:19 AM CDT Respiratory Rate 18 05/26/2025 6:15 PM CDT Oxygen Saturation 97% 05/26/2025 6:15 PM CDT Inhaled Oxygen Concentration - - Weight 65.4 kg (144 lb 2.9 oz) 06/01/2025 11:19 AM CDT Height 185.4 cm (6' 0.99) 06/01/2025 11:19 AM C DT Body Mass Index 19.03 06/01/2025 11:19 AM CDT Plan of Treatment Upcoming Encounters Date Type Department Care Team (Late st Contact Info) Description 07/14/2025 1:00 PM CDT Office Visit Department of Neurology in [place], [place] [address] [place] [address] Jadon Blevins M.D. [address] [place] [address] Health Maintenance Due Date Last Done Comments Hepatitis C Screening 2003 TB Screening during Well Chi ld Visit 2003 Tobacco Cessation counseling 2003 1 week Well Child Check-Up 2003 1 month Well Child Check-Up 2003 2 month Well Child Check-Up 01/19/2004 4 month Well Child Check-Up 03/03/2004 9 month Well Child Check-Up 08/03/2004 15 month Well Child Check-Up 02/01/2005 18 month Well Child Check-Up 05/03/2005 2 year Well Child Check-Up 11/03/2005 30 month Well Child Check-Up 05/03/2006 3 year Well Child Check-Up 11/03/2006 Well Child Check-Up Complete d in Past Year 11/03/2006 5 year Well Child Check-Up 11/03/2008 6 year Well Child Check-Up 11/03/2009 7 year Well Child Check-Up 11/03/2010 8 year Well Child Check-Up 11/03/2011 10 year Well Child Check-Up 11/03/2013 12 year Well Child Check-Up 11/03/2015 11 year Well Child Check-Up 11/03/2016 12 year Well Child Check-Up 11/03/2017 13 year Well Child Check-Up 11/03/2018 HPV Vaccines (1 - Male 3-dos e series) 2018 16 year Well Child Check-Up 11/30/2019 15 year Well Child Check-Up 11/03/2020 18 year Well Child Check-Up 11/03/2021 17 year Well Child Check-Up 11/03/2022 DTaP,Tdap,and Td Vaccines (1 - Tdap) 2022 Hepatitis B Vaccines (1 of 3 - 19+ 3-dose series) 2022 20 year Well Child Check-Up 11/03/2023 21 year Well Child Check-Up 11/03/2024 Well Child Check-Up (WCC) 11/03/2024 COVID-19 Vaccine (1 - 2023-2 5 season) 2025 Influenza Vaccine (#1) 2025 Depression Monitoring (PHQ-9) 09/29/2025 05/30/2025 Depression Monitoring (PHQ-9 for quality tracking) Completed 06/01/2025 IPV Vaccines Aged Out No longer eligi ble based on patient's age to complete this topic Meningococcal Vaccine Aged Out No kit reagan eligible based on patient's age to complete this topic Pneumococcal vaccine (0-49 years) Aged Out No longer eligible based on patient's age to complete this topic Procedures Procedure Name Priority Date/Time Associated Diagnosis Comments HOME SLEEP APNEA TEST (HSAT) Routine 06/10/2025 10:[address] THORACIC SPINE WITHOUT IV CONTRAST RAD - Semiurgent (Fast; most ED patients; some inpatients) 05/26/2025 5:[address] CERVICAL SPINE WITHOUT IV CONTRAST RAD - Semiurgent (Fast; most ED patients; some inpatients) 05/26/2025 5:36 PM CDT ECG Routine 05/26/2025 5:19 PM CDT COMPREHENSIVE METABOLIC PANEL, S/P STAT 05/26/2025 5:19 PM CDT CBC WITH DIFFERENTIAL, B STAT 05/26/2025 5:19 PM CDT GLUCOSE POCT, B Routine 05/26/2025 5:17 PM CDT from Last 3 Months Results * Home sleep apnea test (HSAT) [...] CENTER ORDERA BLES Final Result ONBASE NA * CT Thoracic Spine without IV Contrast [...] injury. Thoracic spine Schmorl's nodes as described. Joon Deng APRN, C.N.P., D.N.P. IMG CT PROCE DURES Final Result * ECG 12 Lead (05/26/2025 5:19 PM CDT) Ventricular Rate ECG/Min 77 BPM MUSE MA Interval 164 ms MUSE QRSD Interval 90 ms MUSE QT Interval 368 ms MUSE QTC Interval 416 ms MUSE P Olin 81 degrees MUSE R Olin 92 degrees MUSE T Wave Olin 75 degrees MUSE 05/26/2025 5:19 PM CDT [...] duration has increased Reviewed by KAYA Perez us Joon Deng APRN, C.N.P., D.N.P. ECG ORDERABL ES Edited Result - Final MUSE NA * (ABNORMAL) CBC with Differential, Blood (05/26/2025 5:19 PM CDT) Pathologist [facility] Hemoglobin 14.6 13.2 - 16.6 g/dL 05/26/2025 [...] PM CDT 05/26/2025 5:20 PM CDT us Joon Deng APRN, C.N.P., D.N.P. LAB BLOOD AD D-ON Final Result [facility] [address] [place] [id number], [facility] [place] in [address] [address] * Comprehensive Metabolic Panel (05/26/2025 5:19 PM CDT) Pathologist [facility] Potassium, P 3.9 3.6 - 5.2 mmol/L [...] 5:19 PM CDT 05/26/2025 5:20 PM CDT Lisa Knight APRNNNiurkaP., D.N.P. LAB BLOOD AD D-ON Final Result [facility] [address] [place] [id number], [facility] CN[facility] in [address] [address] * Glucose, POCT (05/26/2025 5:17 PM CDT) Glucose, POCT, B 98 70 - 140 mg/dL 05/26/2025 5:17 PM CDT CNFL Blood 05/26/2025 5:17 PM CDT 05/26/2025 5:24 PM CDT [facility] POCT ORDERABLES-MANUAL Final Result Performing Organization Address City/[facility]/ZIP Co de Phone Number [facility] [address] [place] [id number], [place] CNFL [facility] in [address] [address] from Last 3 Months Insurance [facility] [address] [facility] [place] [address] Advance Directives For more information, please contact: [phone] * Full Code (Latest Code Status on File) Date Activated Date Inactivated Comments 08/14/2024 8:11 AM 08/18/2024 2:05 PM Question Answer Comments Full Code: Discussed * Full Code Date Activated Date Inactivated Comments 04/04/2024 2:43 AM 04/05/2024 7:30 PM Question Answer Comments Full Code: Discussed Care Teams Weatherization Administrator Relationship Specialty Start Date End Date Riri Wright APRN, C.N.P. [address] [place] [phone] PCP - General Family Medicine 05/27/25
[2025-06-25 22:01] VITALS: BP 126/83; PULSE 76; RESP 16; TEMP 37; O2SAT 97; BMI 18.9
--- NOTE | 2025-06-26 00:08 | CRLHL7_ITS ---
For Patients: As a result of the Cures Act, medical imaging exams and procedure reports are released immediately into your electronic medical record. You may view this report before your referring provider. If you have questions, please contact your health care provider. INDICATION: Chest pain TECHNIQUE: Chest radiograph 2 views COMPARISON: None FINDINGS: Mediastinum: The mediastinum is normal in appearance. The heart silhouette is normal in size and morphology. Lung: Both lungs are unremarkable in appearance. No sign of pleural effusion seen. No pneumothorax is identified. Bone and Soft tissue: Unremarkable for age. IMPRESSION: 1. No acute cardiopulmonary disease is seen. Dictated by: John Diaz MD @ 06/26/2025 00:31:18 (Electronically Signed)
[2025-06-26 00:18] LABS: Hematocrit* 45.8 % (37.0-53.0); Hemoglobin* 15.6 gm/dL (13.5-17.5); Immature Granulocytes Abs Auto 0.04 K/uL (0.00-0.30); Immature Granulocytes Pct Auto 0.7 %; Lymphocytes Absolute Auto 1.70 K/uL (0.90-2.90); Mean Corpuscular HGB Conc 34 gm/dL (32-36); Mean Corpuscular Hemoglobin 29 pg (26-34); Mean Corpuscular Volume 85 fL (80-100); RDW Coefficient of Variation % 11.8 % (11.5-15.5); Red Blood Count* 5.40 m/uL (4.30-5.90); White Blood Count* 5.73 K/uL (4.50-11.00)
--- OUTSIDE RECORDS SUMMARY | 2025-06-26 00:23 | XMS_ITS | Encounter Summary ---
Author Organization [facility] Address [address] [place] [address] Care Team Providers Care Bedspread Seamer Name Role Phone Riri Wright APRN, C.N.P. Primary Care Provide r Encounter Details Date Type Department Care Team (Late st Contact Info) Description 06/18/2025 Results Follow-Up Department of Family Medicine, [facility], in [address] [phone] Arron Restrepo M.D., M.P.H. [address] [place] [phone] Home sleep apnea test (HSAT) Social [...] things needed for daily living? Yes 05/27/2025 [facility] Utilities Answer Date Recorded In the past 12 months has e [employer], gas, oil, or water company threatened to shut off services in your home? No 05/27/2025 Depression Answer Date Recor ded PHQ-9 Total Score (max 27) 27 05/30 Housing Stability Answer Date Recorded What is your living situation today? I have a [facility] place to live 05/27/2025 Sex and [...] CDT Office Visit Department of Neurology in [place], [place] [address] [place] [address] Jadon Blevins M.D. [address] [place] [address] documented as of this encounter Visit Diagnoses Not on filedocumented in this encounter Additional Health Concerns Assessment Noted Time PHQ-9 Depression Total Score: 27 025 2:58 PM CDT documented as of this encounter Care Teams Bedspread Seamer Relationship Specialty Start Date End Date Riri Wright APRN, C.N.P. [address] [place] [phone] PCP - General Family Medicine 05/27/25 documented as of this encounter
--- OUTSIDE RECORDS SUMMARY | 2025-06-26 00:23 | XMS_ITS | Clinical Summary ---
Author Organization [facility] Address [address] [place] [address] Care Team Providers Care Unit Support Representative Name Role Phone Riri Wright APRN, C.N.P. Primary Care Provide r Source Comments Patient records contain information from all sites at [facility]. For routine questions regarding patient records, call [phone] during business hours, M-F 8:00 AM - 5:00 PM Central Time. Record requests for emergency care only can be directed to [phone] at any time.[facility] Allergies No known active allergies Medications * [...] Personal History 05/28/2025 Overview (05/28/2025): Psychiatry consult, [facility] on 08/21/2024 Assessment & Plan (05/28/2025 9:27 PM CDT): See psychiatry evaluation of 08/21/2024. Reviewed returning for further work on diagnosis of behavioral health issues. Orders: Return to provider in another specialty; Future Psychiatry and Psychology - General consult (clinic); Future Persistent Depressive Disorder 08/21/2024 Overview (05/28/2025): Psychiatry consult-[facility]-08/21/2024 Suggested mirtazapine Medications: Lexapro started 06/11/2024 by Riri Wright APRN, CUT OFF OPERATOR SCORER.-DC Trazodone 50 mg p.o. q.day-DC 10/27/2024-started mirtazapine [...] Team Description 06/18/2025 Results Follow-Up Department of [facility] Medicine, [facility], [address] [address] Arron Restrepo M.D., M.P.H. Home sleep apnea test (HSAT) 06/10/2025 7:17 AM CDT - 06/10/2025 11:59 PM CDT Hospital Encounter Department of Pulmonary Medicine [address] [place] [address] Arron Restrepo M.D., M.P.H. Snoring Discharge Disposition: Home or Self Care 06/03/2025 Clinical Communication Department of Family Medicine, [facility], [address] [phone] Riri Wright APRN C.N.P. RST Psych Referral 06/01/2025 11:40 AM CDT Office Visit Department of [facility], [facility], [address] [address] Arron Restrepo M.D., M.P.H. Persistent Depressive Disorder (Primary Dx); Autistic Feature Personal History; Visual Hallucinations; Insomnia; Snoring; Suicide Ideation Discharge Disposition: Home or Self Care 05/28/2025 10:00 AM CDT Telemedicine Department of [facility], [facility], [address] [address] Izabella Wagoner M.D. Persistent Depressive Disorder (Primary Dx); Autistic Feature Personal History; Depression Major Recurrent Severe (HCC) Discharge Disposition: Home or Self Care 05/28/2025 Clinical Communication Department of Family Medicine, [facility], in [address] [phone] Riri Wright APRN, C.N.P. Positive PHQ-9 05/26/2025 5:14 PM CDT - 05/26/2025 6:29 PM CDT Emergency [facility] [address] [place] [phone] Joon Deng APRN, C.N.P., D.N.P. Strain [...] things needed for daily living? Yes 05/27/2025 [facility] Utilities Answer Date Recorded In the past 12 months has th e electric, gas, oil, or water company threatened to shut off services in your home? No 05/27/2025 Depression Answer Date Recor ded PHQ-9 Total Score (max 27) 27 05/30 Housing Stability Answer Date Recorded What is your living situation today? I have a [facility] place to live 05/27/2025 Sex and [...] CDT Office Visit Department of Neurology in [place], [place] [address] [place] [address] Jadon Blevins M.D. [address] [place] [address] Health Maintenance Due Date Last Done Comments [...] CDT) Ventricular Rate ECG/Min 77 BPM MUSE [place] Interval 164 ms MUSE QRSD Interval 90 ms MUSE QT Interval 368 ms MUSE QTC Interval 416 ms MUSE P [place] 81 degrees MUSE R [place] 92 degrees MUSE T Wave [place] 75 degrees MUSE 05/26/2025 5:19 PM CDT [...] Differential, Blood (05/26/2025 5:19 PM CDT) Pathologist [facility] Hemoglobin 14.6 13.2 - 16.6 g/dL 05/26/2025 [...] D.N.P. LAB BLOOD AD D-ON Final Result [facility] [address] [place] [phone], [facility] in [address] [address] * Comprehensive Metabolic Panel (05/26/2025 5:19 PM CDT) Pathologist [facility] Potassium, P 3.9 3.6 - 5.2 mmol/L [...] D.N.P. LAB BLOOD AD D-ON Final Result [facility] [address] [place] [phone], [facility] CNFL [facility] in [address] [address] * Glucose, POCT (05/26/2025 5:17 PM CDT) Glucose, POCT, B 98 70 - 140 mg/dL 05/26/2025 5:17 PM CDT CNFL Blood 05/26/2025 5:17 PM CDT 05/26/2025 5:24 PM CDT [facility] POCT ORDERABLES-MANUAL Final Result Performing Organization Address City/[facility]/ZIP Co de Phone Number [facility] [address] [place] [phone], [place] CNFL [facility] in [address] [address] from Last 3 Months Insurance [facility] [address] [facility] [place] [address] Advance Directives For more information, please contact: [phone] * Full Code (Latest Code Status on File) Date Activated Date Inactivated Comments 08/14/2024 8:11 AM 08/18/2024 2:05 PM Question Answer Comments Full Code: Discussed * Full Code Date Activated Date Inactivated Comments 04/04/2024 2:43 AM 04/05/2024 7:30 PM Question Answer Comments Full Code: Discussed Care Teams Unit Support Representative Relationship Specialty Start Date End Date Riri Wright APRN, C.N.P. [address] [place] [phone] PCP - General Family Medicine 05/27/25
--- OUTSIDE RECORDS SUMMARY | 2025-06-26 00:24 | XMS_ITS | Encounter Summary ---
Author Organization [facility] Address [address] [place] [address] Care Team Providers Care Head Start Coordinator Name Role Phone Riri Wright APRN, C.N.P. Primary Care Provide r Reason for Visit * Reason Onset Date Comments Positive PHQ-9 05/28/2025 Encounter Details Date Type Department Care Team (Latest Contact Info) Description 05/28/2025 Clinical Communication Department of Family Medicine, [facility], in [address] [phone] Riri Wright APRN, C.N.P. [address] [place] [phone] Positive PHQ-9 Social History Tobacco Use [...] things needed for daily living? Yes 05/27/2025 [facility] Utilities Answer Date Recorded In the past [address] [facility] [employer] gas, oil, or water [employer] threatened to shut off services in your home? No 05/27/2025 Depression Answer Date Recor ded PHQ-9 Total Score (max 27) 27 05/27 Housing Stability Answer Date Recorded What is your living situation today? I have a [facility] place to live 05/27/2025 Sex and [...] CDT Office Visit Department of Neurology in [place], [place] [address] [place] [address] Jadon Blevins M.D. [address] [place] [address] documented as of this encounter Visit Diagnoses Not on filedocumented in this encounter Additional Health Concerns Assessment Noted Time PHQ-9 Depression Total Score: 27 025 4:25 PM CDT documented as of this encounter Care Teams Head Start Coordinator Relationship Specialty Start Date End Date Riri Wright APRN, C.N.P. [address] [place] [phone] PCP - General Family Medicine 05/27/25 documented as of this encounter
--- OUTSIDE RECORDS SUMMARY | 2025-06-26 00:24 | XMS_ITS | Encounter Summary ---
Author Organization [facility] Address [address] [place] [address] Care Team Providers Care Floral Designer Name Role Phone Riri Wright APRN, C.N.P. Primary Care Provide r Reason for Visit * Reason Onset Date Comments RST Psych Referral 06/03/2025 Encounter Details Date Type Department Care Team (Latest Contact Info) Description 06/03/2025 Clinical Communication Department of Family Medicine, [facility], in [address] [phone] Riri Wright APRN, C.N.P. [address] [place] [phone] RST Psych Referral Social History Tobacco [...] things needed for daily living? Yes 05/27/2025 [facility] Utilities Answer Date Recorded In the past 12 months has [facility] [email or web address], gas, oil, or water [employer] threatened to shut off services in your home? No 05/27/2025 Depression Answer Date Recor ded PHQ-9 Total Score (max 27) 27 05/30 Housing Stability Answer Date Recorded What is your living situation today? I have a [facility] place to live 05/27/2025 Sex and [...] CDT Office Visit Department of Neurology in [place], [place] [address] [place] [address] Jadon Blevins M.D. [address] [place] [address] documented as of this encounter Visit Diagnoses Not on filedocumented in this encounter Additional Health Concerns Assessment Noted Time PHQ-9 Depression Total Score: 27 025 2:58 PM CDT documented as of this encounter Care Teams Floral Designer Relationship Specialty Start Date End Date Riri Wright APRN, C.N.P. [address] [place] [phone] PCP - General Family Medicine 05/27/25 documented as of this encounter
[2025-06-26 00:42] LABS: Chloride* 105 mmol/L (96-114); Slide Review Reflex No
[2025-06-26 00:43] LABS: Potassium* 4.2 mmol/L (3.6-5.1); Sodium* 140 mmol/L (135-149)
[2025-06-26 00:45] LABS: Blood Urea Nitrogen* 12 mg/dL (5-24); Creatinine* 0.8 mg/dL (0.5-1.5); Est. Creatinine Clearance* 130.26; Estimated Glomerular Filt Rate 129 ml/min
[2025-06-26 00:46] LABS: Anion Gap 6 mEq/L (7-15); Calcium* 9.6 mg/dL (8.4-10.6); Carbon Dioxide* 29 mmol/L (20-32); Glucose* 94 mg/dL (60-115)
[2025-06-26 01:21] LABS: D Dimer Quantitative* 0.07 ug/ml (0.00-0.50)
[2025-06-26 01:49] VITALS: BP 121/70; PULSE 79; RESP 16; TEMP 37; O2SAT 97
[2025-06-26 01:51] VITALS: BP 121/70; PULSE 79; RESP 16; TEMP 37
--- NOTE | 2025-06-26 03:35 | ED_ITS ---
HPI - Chest Pain General Date Seen: 06/26/25 Chief Complaint: Chest Pain Stated Complaint: chest pain Time Seen by Provider: 06/25/25 23:59 Source: patient Mode of arrival: ambulatory Limitations: no limitations History of Present Illness HPI narrative: Patient is a 19-year-old male who presents the emergency department after having some anterior chest pain. This came on wall working at [employer]. He was not doing any physical work at that time. The pain moved from his substernal area into his left arm which concerned him. It is now moved down into his mid abdomen. He denies any diaphoresis or dyspnea. He initially thought this was anxiety although he tells me that he does not normally struggle with anxiety. He has never had this type of pain previously. He has no chronic health problems and takes no medications regularly. His father did have heart attack. He does not smoke but he takes oral nicotine. There are times that he can do heavy physical work without any discomfort in his chest. Related Data Home Medications ?Medication ?Instructions ?Recorded ?Confirmed No Known Home Medications 06/25/2506/08 Allergies Allergy/AdvReac Type Severity Reaction Status Date / Time No Known Drug Allergies Allergy Verified 06/25/25 22:04 Review of Systems Narrative Review of systems is outlined above otherwise noted to be negative. PFSH PFSH Family History (Updated 06/26/25 @ 00:09 by Joon Forrest MD) Father Myocardial infarction Social History (Updated 06/26/25 @ 00:09 by Joon Forrest MD) Narrative: Single, no kids, [employer], oral nicotine Smoking Status: Never smoker Second hand tobacco smoke exposure: No How often do you have a drink containing alcohol: never AUDIT-C Alcohol total score: 0 Non-prescribed substance use: denies use Exam Narrative Exam Narrative: Vitals noted. HEENT: Conjunctiva clear. Neck is supple without adenopathy. Lungs: Clear to auscultation in all [place]. No wheezes, rales, rhonchi. Heart: Regular rate and rhythm without murmur. No chest wall tenderness. Abdomen: Soft and nontender. No guarding, rigidity, rebound. Bowel sounds are normal. No palpable masses. Extremities: No cyanosis or edema. Good distal pulses. Skin: No abnormalities noted of the exposed skin. Neurologic: Awake, alert, fully oriented. Neurologic exam is nonfocal. Const Vital Signs, click to edit/add: Vital Signs - 24 hr 06/25/25 22:01 06/26/25 01:49 06/26/25 01:51 Temperature 98.6 F 98.6 F 98.6 F Pulse Rate [Pulse Oximeter] 76 79 79 Respiratory Rate 16 16 16 Blood Pressure [Right Upper Arm] 126/83 121/70 121/70 Pulse Oximetry 97 97 Oxygen Delivery Method Room Air Room Air Course Course ED Course: Patient seen and examined. Chest x-ray is normal. EKG shows normal sinus rhythm with a rate of 85. CBC, BMP, D-dimer, troponin, lipase are all normal. His pain was not severe enough to require any treatment. It essentially resolved during his time spent in the ER. We discussed noncardiac causes of chest pain such as anxiety, acid reflux, chest wall pain. Vital Signs Vital signs: Initial Vital Signs Temperature 98.6 F 06/25/25 22:01 Temperature Source Oral 06/25/25 22:01 Pulse Rate 76 06/25/25 22:01 Respiratory Rate 16 06/25/25 22:01 Blood Pressure 126/83 06/25/25 22:01 Blood Pressure Mean 97 06/25/25 22:01 Blood Pressure Position Sitting 06/25/25 22:01 Pulse Oximetry 97 06/25/25 22:01 Oxygen Delivery Method Room Air 06/25/25 22:01 Vital Signs Temperature 98.6 F 06/25/25 22:01 Pulse Rate 76 06/25/25 22:01 Respiratory Rate 16 06/25/25 22:01 Blood Pressure 126/83 06/25/25 22:01 Pulse Oximetry 97 06/25/25 22:01 Oxygen Delivery Method Room Air 06/25/25 22:01 Temperature 98.6 F 06/26/25 01:51 Pulse Rate 79 06/26/25 01:51 Respiratory Rate 16 06/26/25 01:51 Blood Pressure 121/70 06/26/25 01:51 Pulse Oximetry 97 06/26/25 01:49 Oxygen Delivery Method Room Air 06/26/25 01:49 MDM - Chest Pain Lab Data Labs: Lab Results 06/26/25 Range/Units 00:13 WBC 5.73 (4.50-11.00) K/uL RBC 5.40 (4.30-5.90) m/uL Hgb 15.6 (13.5-17.5) gm/dL Hct 45.8 (37.0-53.0) % MCV 85 (80-100) fL MCH 29 (26-34) pg MCHC 34 (32-36) gm/dL RDW Coeff of Canelo 11.8 (11.5-15.5) % Plt Count 200 (140-440) K/uL Neut % (Auto) 60.8 (42.0-72.0) % Lymph % (Auto) 29.7 (20-44) % [place] % (Auto) 7.5 (0.0-11.0) % Eos % (Auto) 1.0 (0.0-7.0) % Baso % (Auto) 0.3 (0.0-3.0) % Neut # (Auto) 3.48 (1.7-7.0) K/uL Lymph # (Auto) 1.70 (0.90-2.90) K/uL [place] # (Auto) 0.40 (0.00-0.90) K/UL Eos # (Auto) 0.06 (0.00-0.50) K/uL Baso # (Auto) 0.02 (0.00-0.30) K/uL Abs Immat Gran (auto) 0.04 (0.00-0.30) K/uL Imm/Tot Granulo (auto) 0.7 % D-Dimer Quant (PE/DVT) 0.07 (0.00-0.50) ug/ml Sodium 140 (135-149) mmol/L Potassium 4.2 (3.6-5.1) mmol/L Chloride 105 (96-114) mmol/L Carbon Dioxide 29 (20-32) mmol/L Anion Gap 6 L (7-15) mEq/L BUN 12 (5-24) mg/dL Creatinine 0.8 (0.5-1.5) mg/dL Estimated Creat Clear 130.26 Estimated GFR 129 ml/min Glucose 94 (60-115) mg/dL Calcium 9.6 (8.4-10.6) mg/dL Troponin I < 0.01 (0.01-0.04) ng/mL Lipase 23 (23-300) U/L Discharge Plan Discharge Clinical Impression: Atypical chest pain Patient Disposition: Home, Self-Care Condition: Stable Additional Instructions: Tylenol or Ibuprofen for pain. Follow up in the clinic if pain persists. The pain is not from your heart or your lungs. It may be chest wall pain or anxiety. Prescriptions: No Action No Known Home Medications Follow Up/Referrals: Provider,Not a Local [Primary Care Provider, Family Practice] Stand Alone Forms: Autism Home Support Services Info Instructions
== END 2025-06-26 01:51 | disposition home or self-care (01) ==
PROVIDERS: Emergency Provider Family Medicine
DX: R07.9 Chest pain, unspecified (principal)
CPT/HCPCS: 36415; 71046; 80048; 83690; 84484; 85025; 85379; 93005; 99282; 99284

== ENCOUNTER 2025-09-01 20:16 | Emergency (ER) | payer OTHER, SELFPAY ==
--- OUTSIDE RECORDS SUMMARY | 2025-09-01 20:18 | XMS_ITS | Clinical Summary ---
Author Organization [facility] Address [address] [place] [address] Care Team Providers Care Studio Assistant Name Role Phone Riri Wright APRN, C.N.P. Primary Care Provide r Source Comments Patient records contain information from all sites at [facility]. For routine questions regarding patient records, call [phone] during business hours, M-F 8:00 AM - 5:00 PM Central Time. Record requests for emergency care only can be directed to [phone] at any time.[facility] Allergies No known active allergies Medications * This document contains information received from the source organization and may not represent a complete record from that organization. mirtazapine (Remeron) 7.5 mg tabletIndicatio ns:Persistent Depressive Disorder,Depres chhaya Major Recurrent Severe (HCC) Take 1 tablet (7.5 mg total) by mouth at bedtime. 90 tablet Active Additional Information Patient taking differently:7.5 mg oral Daily at bedtime,Has not started this medication., Reported on 06/01/2025 Active Problems Problem Noted Date Diagnosed Date Autistic Feature Personal History 05/28/2025 Overview (05/28/2025): Psychiatry consult, [facility] on 08/21/2024 Assessment & Plan (05/28/2025 9:27 PM CDT): See psychiatry evaluation of 08/21/2024. Reviewed returning for further work on diagnosis of behavioral health issues. Orders: Return to provider in another specialty; Future Psychiatry and Psychology - General consult (clinic); Future Persistent Depressive Disorder 08/21/2024 Overview (05/28/2025): Psychiatry consult-[facility]-08/21/2024 Suggested mirtazapine Medications: Lexapro started 06/11/2024 by Riri Wright APRN, PUBLIC INFORMATION SPECIALIST.-DC Trazodone 50 mg p.o. q.day-DC 10/27/2024-started mirtazapine [...] Team Description 06/18/2025 Results Follow-Up Department of Family Medicine, [facility], in [address] [place] [address] Arron Restrepo M.D., M.P.H. Home sleep apnea test (HSAT) 06/10/2025 7:17 AM CDT - 06/10/2025 11:59 PM CDT Hospital Encounter Department of Pulmonary Medicine in [place], [place] [address] [place] [address] Arron Restrepo M.D., M.P.H. Snoring Discharge Disposition: Home or Self Care 06/03/2025 Clinical Communication Department of [facility], [facility], in [address] [address] Riri Wright APRN CNiurkaNKemal. RST Psych Referral 06/01/2025 11:40 AM CDT Office Visit Department of [facility], [facility], [address] [address] Arron Restrepo M.D., M.P.H. Persistent Depressive Disorder (Primary Dx); Autistic Feature Personal History; Visual Hallucinations; Insomnia; Snoring; Suicide Ideation Discharge Disposition: Home or Self Care from Last 3 Months Family History Medical History Relation Name Comments Psychiatric Brother 1 Kristopher Almanzar Suicide attempts Brother 1 Kristopher Almanzar ADD / ADHD Brother 2 Nathan Reagan Coronary artery disease Father Brock Reagan Hyperlipidemia (high cholesterol) Father Brock moran Hypertension Father Brock Reagan Stroke Father Brock Reagan Psychiatric Sister Juanita Almanzar Suicide attempts Sister Juanita Almanzar Relation Name Status Comments Brother 1 Kristopher Almanzar Alive Brother 2 Nathan Reagan Alive Father Brock Reagan Alive Sister Juanita Almanzar Alive Social History [...] things needed for daily living? Yes 05/27/2025 [facility] Utilities Answer Date Recorded In the past 12 months has [facility] [employer], gas, oil, or water company threatened to shut off services in your home? No 05/27/2025 Depression Answer Date Recor ded PHQ-9 Total Score (max 27) 27 05/30 Housing Stability Answer Date Recorded What is your living situation today? I have a [facility] place to live 05/27/2025 Sex and [...] 06/01/2025 11:19 AM CDT Plan of Treatment Health Maintenance Due Date Last Done Comments [...] Check-Up ([facility]) 11/03/2024 COVID-19 Vaccine (1 - 2024-2 6 season) 2025 Influenza Vaccine (#1) 2025 Depression [...] (HSAT) Routine 06/10/2025 10:48 AM CDT Snoring from Last 3 Months Results * Home [...] CENTER ORDERA BLES Final Result ONBASE NA from [place] [id number] [facility] [address] [address] [place] [id number] Advance Directives For more information, please contact: [phone] * Full Code (Latest Code Status on File) Date Activated Date Inactivated Comments 08/14/2024 8:11 AM 08/18/2024 2:05 PM Question Answer Comments Full Code: Discussed * Full Code Date Activated Date Inactivated Comments 04/04/2024 2:43 AM 04/05/2024 7:30 PM Question Answer Comments Full Code: Discussed Care Teams Studio Assistant Relationship Specialty Start Date End Date Riri Wright APRN, C.N.P. [address] [place], [place] [address] [phone] PCP - General Family Medicine 05/27/25
--- OUTSIDE RECORDS SUMMARY | 2025-09-01 20:18 | XMS_ITS | Encounter Summary ---
Author Organization [facility] Address [address] [place] [address] Care Team Providers Care Power And Recovery Supervisor Name Role Phone Riri Wright APRN, C.N.P. Primary Care Provide r Encounter Details Date Type Department Care Team (Late st Contact Info) Description 06/18/2025 Results Follow-Up Department of Family Medicine, [facility], in [address] [phone] Arron Restrepo M.D., M.P.H. [address] [place] [phone] Home sleep apnea test (HSAT) Social [...] things needed for daily living? Yes 05/27/2025 [facility] Utilities Answer Date Recorded In the past 12 months has th e [employer], gas, oil, or water company threatened to shut off services in your home? No 05/27/2025 Depression Answer Date Recor ded PHQ-9 Total Score (max 27) 27 05/30 Housing Stability Answer Date Recorded What is your living situation today? I have a [facility] place to live 05/27/2025 Sex and Gender Information Value Date Recorded Sex Assigned at Male 04/14/2024 10:17 AM CDT Legal Sex Male 11:10 AM CDT Gender Identity Male 04/14/2024 10:17 AM CDT Sexual Orientation Straight 04/14/2024 10 :17 AM CDT documented as of this encounter Plan of Treatment Not on file documented as of this encounter Visit Diagnoses Not on filedocumented in this encounter Additional Health Concerns Assessment Noted Time PHQ-9 Depression Total Score: 27 025 2:58 PM CDT documented as of this encounter Care Teams Power And Recovery Supervisor Relationship Specialty Start Date End Date Riri Wright APRN, C.N.P. [address] [place] [phone] PCP - General Family Medicine 05/27/25 documented as of this encounter
[2025-09-01 20:20] VITALS: BP 126/84; PULSE 78; RESP 20; TEMP 36.9; O2SAT 99; BMI 18.5
--- NOTE | 2025-09-01 20:28 | ED.GENADULT ---
HPI - General Adult General Chief complaint: Eye Problems Stated complaint: glass in eye Time Seen by Provider: 09/01/25 20:18 History of Present Illness HPI narrative: CC: Left Peripheral Blurriness pt. had light bulb break at work and debris went into his face. c/o left eye pain. blurriness in peripheral view 19-year-old man presenting to the emergency department with concern of left eye injury. A long fluorescent bulb was broken in his vicinity by colleague at work and is concerned that some debris got into his eye. Has had some irritation in the left eye. Not with significant pain. Some sense of some blurriness in left periphery. No other injuries were sustained. Has been screened already with snellen eye chart at 20/30 bilaterally. Related Data Home Medications ?Medication ?Instructions ?Recorded ?Confirmed No Known Home Medications 06/25/25 09/01/25 Allergies Allergy/AdvReac Type Severity Reaction Status Date / Time No Known Drug Allergies Allergy Verified 09/01/25 20:23 Review of Systems Status of ROS: Reports: 6 or more systems reviewed and unremarkable except as noted in History and below [facility] Family History (Updated 06/26/25 @ 00:09 by Joon Forrest MD) Father Myocardial infarction Social History Narrative: Single, no kids, Menards, oral nicotine Smoking Status: Never smoker Second hand tobacco smoke exposure: No How often do you have a drink containing alcohol: never AUDIT-C Alcohol total score: 0 Non-prescribed substance use: denies use Exam Narrative: Exam Narrative: Pleasant. Calm. NAD. Breathing easily. No cuts or other injuries to his face or hands evident. Pupils are 3-4 mm and equal appropriately reactive. Extraocular movements are full and appear to be pain free. He is quite tolerant of exam and so has done relatively easily. Initial evaluation does not reveal any foreign body. Subsequently placed fluorescein dye staining and with inversion of eyelids as well I do not see any evidence of corneal abrasion no foreign body. There is maybe some slight scleral uptake in the left eye at the 5 o'clock position. Point of irritation on the left lower lid that might be involving stye? Const: Vital Signs, click to edit/add: Vital Signs - 24 hr 09/01/25 20:20 Temperature 98.5 F Pulse Rate [Right Pulse Oximeter] 78 Respiratory Rate 20 Blood Pressure [Ri ght Upper Arm] 126/84 Pulse Oximetry 99 Oxygen Delivery Me thod Room Air Documenting provider has reviewed patient's vital signs: yes Course Vital Signs Vital signs: Initial Vital Signs Temperature 98.5 F 09/01/25 20:20 Temperature Source Temporal Artery Scan 09/01/25 20:20 Pulse Rate 78 09/01/25 20:20 Respiratory Rate 20 09/01/25 20:20 Blood Pressure 126/84 09/01/25 20:20 Blood Pressure Mean 98 09/01/25 20:20 Blood Pressure Position Sitting 09/01/25 20:20 Pulse Oximetry 99 09/01/25 20:20 Oxygen Delivery Method Room Air 09/01/25 20:20 Vital Signs Temperature 98.5 F 09/01/25 20:20 Pulse Rate 78 09/01/25 20:20 Respiratory Rate 20 09/01/25 20:20 Blood Pressure 126/84 09/01/25 20:20 Pulse Oximetry 99 09/01/25 20:20 Oxygen Delivery Method Room Air 09/01/25 20:20 Temperature 98.5 F 09/01/25 21:27 Pulse Rate 78 09/01/25 21:27 Respiratory Rate 20 09/01/25 21:27 Blood Pressure 126/84 09/01/25 21:27 Pulse Oximetry 99 09/01/25 21:20 Oxygen Delivery Method Room Air 09/01/25 21:20 Medical Decision Making MDM Narrative Medical decision making narrative: Not appear to have sustained significant injury. Possibly mild scleral abrasion; from rubbing? Nothing that I can see the removed. No significant edema of conjunctiva or elsewhere to suggest need for further evaluation. There is no direct impact and I do not see hyphema initial exam. Generally well. Reassuring exam. See patient discharge plan for further discussion There might be a mild scleral abrasion. Thankfully no foreign body to remove that I can identify. If you are feeling fine, probably nothing to do. If seems a little irritated consider placing generic eye ointment, small ribbon, maybe 4 times a day; last dose at sleep. Could also use refresh p.m. drops or Lacri-Lube. Be seen for swelling around the eye, redness, marked increase in pain, purulent drainage. Medical Records Medical records reviewed: Yes I reviewed the patient's medical records Discharge Plan Discharge Clinical Impression: Eye irritation Patient Disposition: Home, Self-Care Condition: Improved Additional Instructions: There might be a mild scleral abrasion. Thankfully no foreign body to remove that I can identify. If you are feeling fine, probably nothing to do. If seems a little irritated consider placing generic eye ointment, small ribbon, maybe 4 times a day; last dose at sleep. Could also use refresh p.m. drops or Lacri-Lube. Be seen for swelling around the eye, redness, marked increase in pain, purulent drainage. Prescriptions: No Action No Known Home Medications Follow Up/Referrals: Provider,Not a Local [Primary Care Provider, Family Practice] Stand Alone Forms: [employer] Info Instructions
[2025-09-01 21:20] VITALS: BP 121/78; PULSE 71; RESP 20; TEMP 36.9; O2SAT 99
[2025-09-01 21:27] VITALS: BP 126/84; PULSE 78; RESP 20; TEMP 36.9
== END 2025-09-01 21:20 | disposition home or self-care (01) ==
PROVIDERS: Emergency Provider Family Medicine
DX: H57.12 Ocular pain, left eye (principal)
CPT/HCPCS: 99283; 99284; A9270